=== PATIENT | male | born 1970 | race Caucasian/White ===

== ENCOUNTER 2021-09-20 11:21 | Outpatient (CLI) | payer BC, SELFPAY ==
[2021-09-20 11:25] VITALS: BP 132/88; PULSE 64; RESP 18; TEMP 36.4; O2SAT 95; BMI 25.7
[2021-09-20 11:56] VITALS: BP 124/81; PULSE 72; RESP 16; TEMP 36.6; O2SAT 98
[2021-09-20 12:51] VITALS: BP 126/86; PULSE 65; RESP 16; TEMP 36.6; O2SAT 95
== END 2021-09-20 11:22 | disposition home or self-care (01) ==
LOC: OPS 11:23
PROVIDERS: PCP Family Medicine; Visit Provider Family Medicine
DX: U07.1 COVID-19 (principal)
CPT/HCPCS: 96365